=== PATIENT | male | born 1990 | race Caucasian/White ===

== ENCOUNTER 2018-10-21 18:19 | Emergency (ER) | payer SELFPAY ==
[~2018-10-21] VITALS: Ht 162.6 cm; Wt 97.7 kg
[2018-10-21 18:31] VITALS: BP 153/90
== END 2018-10-21 19:30 | disposition left against medical advice (07) ==
LOC: EMS 18:19
DX: Z53.21 Procedure and treatment not carried out due to patient leaving prior to being seen by health care provider (principal)